=== PATIENT | female | born 1955 | race Caucasian/White ===

== ENCOUNTER 2017-07-22 08:04 | Day surgery (SDC) | payer OTHER ==
[2017-07-21 17:22] VITALS: BMI 24.5
[~2017-07-22 08:04] MED LIST: ACETAMINOPHEN 325 MG TABLET (FP) PO PRN
[2017-07-22] MEDS ORDERED: CYCLOPENTOLATE HCL 1% OPHTH SOLN 2 ML BOTTLE ONE (08:19)
[2017-07-22] MEDS ORDERED: FLURBIPROFEN 0.03% OPHTH SOLN 2.5 ML BOTTLE ONE (08:19)
[2017-07-22] MEDS ORDERED: TROPICAMIDE 1% OPHTH SOLN 15 ML BOTTLE ONE (08:19)
[2017-07-22] MEDS ORDERED: PHENYLEPHRINE 2.5% OPHTH SOLN 15 ML BOTTLE ONE (08:19)
[2017-07-22] MEDS ORDERED: CIPROFLOXACIN 0.3% EYE DROPS 5 ML BOTTLE ONE (08:19)
[2017-07-22] MEDS: PHENYLEPHRINE 2.5% OPHTH SOLN 15 ML BOTTLE OP SCH ×3 (08:25→08:35)
[2017-07-22] MEDS: CYCLOPENTOLATE HCL 1% OPHTH SOLN 2 ML BOTTLE OP SCH ×3 (08:25→08:35)
[2017-07-22] MEDS: CIPROFLOXACIN HCL 0.3% OPHTH 2.5ML BOTTLE OP SCH ×3 (08:25→08:35)
[2017-07-22] MEDS: FLURBIPROFEN 0.03% OPHTH SOLN 2.5 ML BOTTLE OP SCH ×3 (08:25→08:35)
[2017-07-22] MEDS: TROPICAMIDE 1% OPHTH SOLN 15 ML BOTTLE OP SCH ×3 (08:25→08:35)
[2017-07-22 08:44] VITALS: TEMP 98.6
[2017-07-22] MEDS ORDERED: LIDOCAINE HCL/PF 2% SDV 5ML VIAL ONE (09:24)
[2017-07-22] MEDS ORDERED: PROPOFOL 20 ML ONE (09:24)
[2017-07-22] MEDS ORDERED: MIDAZOLAM HCL 2 MG/2 ML SINGLE DOSE VIAL ONE (09:24)
[2017-07-22] MEDS ORDERED: TETRACAINE 0.5% OPHTH SOLN 2 ML BOTTLE OD ONE (09:25)
[2017-07-22] MEDS ORDERED: BUPIVACAINE HCL/PF 0.75% 10 ML VIAL RB ONE (09:32)
[2017-07-22] MEDS ORDERED: LIDOCAINE HCL/PF 2% SDV 5ML VIAL INF ONE (09:32)
[2017-07-22] MEDS ORDERED: POVIDONE-IODINE 5% OPHTHALMIC PREP 30 ML SOLUTION OD ONE (09:37)
[2017-07-22] MEDS ORDERED: BSS (NA/CA/MG/K) BALANCED SALT SOLUTION OPHTH SOLN 15 ML BOTTLE OD ONE (09:45)
[2017-07-22] MEDS ORDERED: LIDOCAINE HCL 1% PRESERVATIVE FREE - 30ML VIAL IO ONE (09:45)
[2017-07-22] MEDS ORDERED: TRYPAN BLUE 0.5 ML DISP.SYRIN IO ONE (09:45)
[2017-07-22] MEDS ORDERED: CHONDROITIN SU A/HYALUR SOD 1 KIT IO ONE (09:45)
[2017-07-22] MEDS ORDERED: EPINEPHrine/PF 1 MG/1 ML (1:1,000) AMPULE IO ONE (09:47)
[2017-07-22] MEDS ORDERED: TRYPAN BLUE 0.5 ML DISP.SYRIN ONE (10:42)
[2017-07-22 12:46] VITALS: BP 119/73; PULSE 56
--- NOTE | 2017-07-23 07:31 | OP ---
DATE OF OPERATION: 07/22/2017 PREOPERATIVE DIAGNOSIS: Cataract, right eye. POSTOPERATIVE DIAGNOSIS: Mature cataract, right eye. PROCEDURE: Phacoemulsification of right cataract with posterior chamber intraocular lens implantation and capsule staining with trypan blue. The lens used [id number], 23.5 diopter power, serial number [id number]. ANESTHESIA: Peribulbar/modified van Lint/MAC. COMPLICATIONS: None. DESCRIPTION OF PROCEDURE: The patient was brought to the operating room and correctly identified along with the operative site As well as correct intraocular lens lundy. She was then given a peribulbar block under sedation with 5 mL of a 1:1 mixture of 2% lidocaine and 0.75% bupivacaine. Then, 2 mL of the same mixture was given as a modified van Lint. An eyelid speculum was then placed into the right eye. A poor red reflex was noted immediately. A paracentesis port was created and intracameral lidocaine given, and then, beneath an air bubble, the capsule was stained with trypan blue. Viscoelastic was then injected to inflate the anterior chamber, and a temporal clear corneal wound was created. A continuous circular capsulorrhexis was performed. The nucleus was then hydrodissected and hydrodelineated with BSS and removed with phacoemulsification. The remaining cortical material was irrigated and aspirated from the eye. Viscoelastic was injected to inflate the anterior chamber, and the lens was injected into the capsular bag. Viscoelastic was irrigated and aspirated from the eye. At the end of the procedure, the eye well was noted to be well centered, covered by the anterior capsular border. All wounds were tested and found to be watertight. No suture was placed. Topical vancomycin placed, the eye patched and shielded, and the patient discharged from the operating room in a stable condition. GRACE TREVIZO M.D. [id number]
== END 2017-07-22 11:20 | disposition home or self-care (01) ==
LOC: JASU-SURG 08:04
PROVIDERS: ATTEND Ophthalmology
PROC: 08RJ3JZ Replacement of Right Lens with Synthetic Substitute, Percutaneous Approach (ICD-10-PCS; principal; 2017-07-22 09:00)
DX: H25.091 Other age-related incipient cataract, right eye (principal); H57.8 Other specified disorders of eye and adnexa

== ENCOUNTER 2019-03-30 12:18 | Emergency (ER) | payer OTHER ==
[2019-03-30] MEDS ORDERED: SODIUM CHLORIDE 1,000 ML IV STA (12:39)
[2019-03-30 12:49] VITALS: PULSE 76; BMI 21.7
[2019-03-30 13:28] LABS: BASO % 0.5 % (0-2.0); EOS % 0.6 % (0-4.5); HEMATOCRIT 41.5 % (32.4-45.2); HEMOGLOBIN 13.9 GM/dL (10.7-15.3); LYMPH % 28.4 % (8-40); MCH 29.5 pg (25.7-33.7); MCHC 33.5 g/dl (32.0-36.0); MEAN PLT VOLUME 9.9 fl (7.5-11.1); MONO % 9.3 % (3.8-10.2); NEUT % 61.2 % (42.8-82.8); PLATELET COUNT 208 K/MM3 (134-434); RBC 4.71 M/mm3 (3.60-5.2); RDW 12.8 % (11.6-15.6); WHITE BLOOD COUNT 5.1 K/mm3 (4.0-10.0)
[2019-03-30 13:49] LABS: ALBUMIN 3.8 g/dl (3.4-5.0); BILIRUBIN,TOTAL 0.9 mg/dL (0.2-1); BLOOD UREA NITROGEN 11.3 mg/dL (7-18); CALCIUM 9.3 mg/dL (8.5-10.1); CREATININE 0.8 mg/dL (0.55-1.3); MAGNESIUM 2.1 mg/dL (1.8-2.4); POTASSIUM 4.5 mmol/L (3.5-5.1)
[2019-03-30] MEDS ORDERED: INSULIN REGULAR HUMAN 100 UNITS/ML *VIAL IVPUSH ONE (14:04)
[2019-03-30] MEDS ORDERED: SODIUM CHLORIDE 500 ML IV STA (14:04)
[2019-03-30] MEDS ORDERED: INSULIN REGULAR HUMAN 100 UNITS/ML *VIAL ONE (14:10)
--- NOTE | 2019-03-30 14:16 | PDOC ---
Documentation entered by Jeannie Fuentes SCRIBE, acting as scribe for Usman Beck MD. Usman Beck MD: This documentation has been prepared by the Gina weir Sammi, SCRIBE, under my direction and personally reviewed by me in its entirety. I confirm that the documentation accurately reflects all work, treatment, procedures, and medical decision making performed by me. History of Present Illness - General Chief Complaint: Blood Sugar Problem Stated Complaint: HIGH BLOOD SUGAR Time Seen by Provider: 03/30/19 12:28 - History of Present Illness Initial Comments: 03/30/19 12:41 The patient is a 63 year old female, with a significant PMH of DM, who presents from PCP David (@ [address] [place] [address]) for evaluation of hyperglycemia and increased urination, most recent blood sugar in 400s (normal range low 100s). Denies fever , chills, or associated pain. Patient endorses history of unintentional weight loss of up to 30 pounds. Denies fevers/chills/night sweats/melena/bright red blood per rectum. Denies recent colonoscopy. Past History - Past Medical History Allergies/Adverse Reactions: Allergies Allergy/AdvReac Type Severity Reaction Status Date / Time No Known Allergies Allergy Verified 08/04/17 08:35 Home Medications: Ambulatory Orders Amlodipine Besylate [Norvasc -] 10 mg PO DAILY 10/06/12 metFORMIN HCL [Metformin HCl] 500 mg PO DAILY 07/21/17 Atenolol/Chlorthalidone [Tenoretic 100 Tablet] 1 each PO DAILY 07/22/17 Atorvastatin Ca [Lipitor] 20 mg PO HS 07/22/17 Anemia: No Asthma: No Cancer: No Cardiac Disorders: No CVA: No COPD: No CHF: No Dementia: No Diabetes: Yes Disorders: No HTN: Yes Hypercholesterolemia: No Liver Disease: No Seizures: No Thyroid Disease: No - Surgical History Abdominal Surgery: No Appendectomy: No Cardiac Surgery: No Cholecystectomy: No Lung Surgery: No Neurologic Surgery: No Orthopedic Surgery: No - Suicide/Smoking/Psychosocial Hx Smoking Status: No Smoking History: Never smoked Number of Cigarettes Smoked Daily: 0 Hx Alcohol Use: Yes (RARELY) Drug/Substance Use Hx: No Substance Use Type: None Review of Systems - Review of Systems Comments:: 03/30/19 12:41 CONSTITUTIONAL: (+)fatigue. (+)hyperglycemia. No fever, no chills, no fatigue EYES: No visual changes ENT: No ear pain, no sore throat CARDIOVASCULAR: No chest pain, no palpitations RESPIRATORY: No cough, no SOB GI: No abdominal pain, no nausea, no vomiting, no constipation, no diarrhea GENITOURINARY: (+)increased urination. No dysuria, no hematuria MUSKULOSKELETAL: No backpain, no joint pain, no myalgias SKIN: No rash NEURO: No headache *Physical Exam - Vital Signs Last Vital Signs Temp Pulse Resp BP Pulse Ox 97.9 F 76 18 156/77 99 03/30/19 12:20 03/30/19 12:20 03/30/19 12:20 03/30/19 12:20 03/30/19 12:20 - Physical Exam Comments: 03/30/19 13:09 CONSTITUTIONAL: Well-appearing; well-nourished; in no apparent distress HEAD: Normocephalic; atraumatic EYES: PERRL; EOM intact ENMT: External appears normal; normal oropharynx NECK: Supple; non-tender; no cervical lymphadenopathy CARD: Normal S1, S2; no murmurs, rubs, or gallops RESP: Normal chest excursion with respiration; breath sounds clear and equal bilaterally; no wheezes, rhonchi, or rales ABD: Soft, non-distended; non-tender; no palpable organomegaly, easily reducable hernia is noted EXT: Normal ROM in all four extremities; non-tender to palpation; distal pulses intact SKIN: Warm, dry, no rash NEURO: No focal neurological deficiencies. 03/30/19 16:16 Heart Score/ECG Review - ECG Impressions Comment:: 03/30/19 13:34 sinus rhythm with sinus arrhythmia with 1st degree AV block right bundle branch block abnormal ECG ED Treatment Course - LABORATORY CBC & Chemistry Diagram: 03/30/19 13:08 03/30/19 13:08 - ADDITIONAL ORDERS Additional order review: Laboratory Results 03/30/19 03/30/19 03/30/19 13:08 13:08 12:42 Sodium 135 L Potassium 4.5 Chloride 98 Carbon Dioxide 21 Anion Gap 16 BUN 11.3 Creatinine 0.8 Est GFR (CKD-EPI)AfAm 92.22 Est GFR (CKD-EPI)NonAf 79.57 POC Glucometer 413 Random Glucose 454 H* Calcium 9.3 Magnesium 2.1 Total Bilirubin 0.9 AST 12 L ALT 14 Alkaline Phosphatase 100 Creatine Kinase 79 Troponin I < 0.02 Total Protein 7.0 Albumin 3.8 03/30/19 03/30/19 13:08 12:42 RBC 4.71 MCV 88.0 MCHC 33.5 RDW 12.8 MPV 9.9 D Neutrophils % 61.2 D Lymphocytes % 28.4 D Monocytes % 9.3 D Eosinophils % 0.6 D Basophils % 0.5 POC Glucometer 413 - RADIOLOGY Radiology Studies Ordered: Category Date Time Status CHEST PA & LAT [RAD] Stat Radiology 03/30/19 12:37 Ordered - Medications Given in the ED: ED Medications Discontinued Medications Generic Name Dose Route Start Last Admin Trade Name Freq PRN Reason Stop Dose Admin Sodium Chloride 1,000 mls @ 1,000 mls/hr 03/30/19 12:39 03/30/19 13:12 Normal Saline - IV 03/30/19 13:38 1,000 mls/hr ASDIR STA Administration Medical Decision Making - Medical Decision Making 03/30/19 14:15 Patient is a 63-year-old female with history of hypertension, diabetes presents to the ER with elevated blood sugar and unintentional weight loss of up to 30 pounds over. Of one month. Patient was transferred from the primary care clinic for evaluation of hyperglycemia. In the ER, patient is awake and alert, symptom- free. Patient is afebrile and nontoxic appearing. We'll obtain CBC/CMP/UA. DKA is highly unlikely. Will hydrate and we'll administer insulin. Will reassess, likely discharge 03/30/19 16:15 Patient reassessed. Patient is resting comfortably, symptom-free. Repeat blood glucose is noted to be 300. Will administer additional insolence subcutaneous. Advised patient to comply with them diabetic diet and follow up with medicine clinic for evaluation of significant weight loss. Patient expressed understanding. Will discharge *DC/Admit/Observation/Transfer Diagnosis at time of Disposition: Hyperglycemia - Discharge Dispostion Disposition: HOME Condition at time of disposition: Stable - Referrals Referrals: Julissa Hernandez MD [Primary Care Provider] - - Patient Instructions Printed Discharge Instructions: DI for Hyperglycemia -- Adult Print Language: BULGARIAN - Post Discharge Activity
[2019-03-30] MEDS ORDERED: INSULIN REGULAR HUMAN 100 UNITS/ML *VIAL SQ ONE (15:58)
[2019-03-30 16:11] LABS: URINE APPEARANCE CLEAR; URINE BILIRUBIN NEGATIVE (NEGATIVE); URINE COLOR YELLOW; URINE GLUCOSE (UA) 3+ (NEGATIVE); URINE KETONE 3+ (NEGATIVE); URINE LEUK ESTERASE NEGATIVE (NEGATIVE); URINE NITRITE NEGATIVE (NEGATIVE); URINE PROTEIN NEGATIVE (NEGATIVE); URINE UROBILINOGEN 0.2 mg/dL (0.2-1.0)
[2019-03-30 16:17] VITALS: BP 126/75; TEMP 98.1
--- NOTE | 2019-03-31 11:12 | EKG ---
Test Reason : Blood Pressure : / mmHG Vent. Rate : 077 BPM Atrial Rate : 077 BPM P-R Int : 210 ms QRS Dur : 146 ms QT Int : 432 ms P-R-T Axes : 050 -05 027 degrees QTc Int : 488 ms SINUS RHYTHM WITH SINUS ARRHYTHMIA WITH 1ST DEGREE A-V BLOCK RIGHT BUNDLE BRANCH BLOCK ABNORMAL ECG WHEN COMPARED WITH ECG OF 30-APR-2013 01:59, RIGHT BUNDLE BRANCH BLOCK IS NOW PRESENT Confirmed by CAMILLE PEDRAZA, JOSE DAVID ([id number]) on 03/31/2019 11:12:10 AM Referred By: Confirmed By:JOSE DAVID OBRIEN MD
== END 2019-03-30 16:30 | disposition home or self-care (01) ==
LOC: JER 12:18
PROC: 3E033VG Introduction of Insulin into Peripheral Vein, Percutaneous Approach (ICD-10-PCS; principal; 2019-03-30)
PROC: 3E013VG Introduction of Insulin into Subcutaneous Tissue, Percutaneous Approach (ICD-10-PCS; 2019-03-30)
PROC: 3E0337Z Introduction of Electrolytic and Water Balance Substance into Peripheral Vein, Percutaneous Approach (ICD-10-PCS; 2019-03-30)
DX: E11.65 Type 2 diabetes mellitus with hyperglycemia (principal); I10 Essential (primary) hypertension; R63.4 Abnormal weight loss
CPT/HCPCS: 36415; 71045-TC-FY; 80053; 81003; 82550; 82962; 83735; 84484; 85025; 93005; 93010; 99283-25; J7030

== ENCOUNTER 2019-05-02 01:21 | Emergency (ER) | payer OTHER | END 2019-05-02 03:50 | disposition home or self-care (01) | LOC: JER 01:21 ==

== ENCOUNTER 2019-10-05 20:28 | Emergency (ER) | payer OTHER ==
[2019-10-05 20:38] VITALS: TEMP 98.3; BMI 24.7
[2019-10-05 22:25] LABS: VENOUS PC02 56.5 mmHg (38-52)
[2019-10-05 22:26] LABS: VENOUS PO2 < 49 mmHg (28-48)
[2019-10-05 22:31] LABS: BASO % 0.7 % (0-2.0); EOS % 1.5 % (0-4.5); HEMATOCRIT 39.2 % (32.4-45.2); HEMOGLOBIN 13.6 GM/dL (10.7-15.3); LYMPH % 45.6 % (8-40); MCH 29.4 pg (25.7-33.7); MCHC 34.7 g/dl (32.0-36.0); MEAN CELL VOLUME 84.6 fl (80-96); MONO % 10.1 % (3.8-10.2); NEUT % 42.1 % (42.8-82.8); PLATELET COUNT 276 K/MM3 (134-434); RBC 4.63 M/mm3 (3.60-5.2); RDW 12.7 % (11.6-15.6); WHITE BLOOD COUNT 5.5 K/mm3 (4.0-10.0)
[2019-10-05 22:40] LABS: INR 0.83 (0.83-1.09); PROTHROMBIN TIME (PATIENT) 9.8 SEC (9.7-13.0)
[2019-10-05 22:42] LABS: ACTIVATED PTT 32.7 SECONDS (25.2-36.5)
[2019-10-05 22:58] LABS: ALBUMIN 3.9 g/dl (3.4-5.0); BILIRUBIN,TOTAL 0.4 mg/dL (0.2-1); BLOOD UREA NITROGEN 25.5 mg/dL (7-18); CALCIUM 9.5 mg/dL (8.5-10.1); CREATININE 1.2 mg/dL (0.55-1.3); POTASSIUM 3.8 mmol/L (3.5-5.1); TOT PROT 7.3 g/dl (6.4-8.2)
[2019-10-05 23:27] LABS: URINE APPEARANCE CLEAR; URINE BILIRUBIN NEGATIVE (NEGATIVE); URINE COLOR YELLOW; URINE GLUCOSE (UA) 3+ (NEGATIVE); URINE KETONE NEGATIVE (NEGATIVE); URINE LEUK ESTERASE NEGATIVE (NEGATIVE); URINE NITRITE NEGATIVE (NEGATIVE); URINE PROTEIN NEGATIVE (NEGATIVE); URINE UROBILINOGEN 0.2 mg/dL (0.2-1.0)
--- NOTE | 2019-10-05 23:58 | PDOC ---
History of Present Illness - General Chief Complaint: Blood Sugar Problem Stated Complaint: HYPERTENSION Time Seen by Provider: 10/05/19 23:45 - History of Present Illness Initial Comments: 63F 10/05/19 23:58 Past History - Past Medical History Allergies/Adverse Reactions: Allergies Allergy/AdvReac Type Severity Reaction Status Date / Time No Known Allergies Allergy Verified 03/30/19 16:21 Home Medications: Ambulatory Orders Amlodipine Besylate [Norvasc -] 10 mg PO DAILY 10/06/12 metFORMIN HCL [Metformin HCl] 1,000 mg PO DAILY 07/21/17 Atenolol/Chlorthalidone [Tenoretic 100 Tablet] 1 each PO DAILY 07/22/17 Atorvastatin Ca [Lipitor] 20 mg PO HS 07/22/17 Glipizide Xl [Glucotrol Xl -] 5 mg PO DAILY 03/30/19 Sitagliptin Phosphate [Januvia] 50 mg PO DAILY 03/30/19 Anemia: No Asthma: No Cancer: No Cardiac Disorders: No CVA: No COPD: No CHF: No Dementia: No Diabetes: Yes Disorders: No HTN: Yes Hypercholesterolemia: No Liver Disease: No Seizures: No Thyroid Disease: No - Surgical History Abdominal Surgery: No Appendectomy: No Cardiac Surgery: No Cholecystectomy: No Lung Surgery: No Neurologic Surgery: No Orthopedic Surgery: No - Psycho Social/Smoking Cessation Hx Smoking Status: No Smoking History: Never smoked Number of Cigarettes Smoked Daily: 0 Hx Alcohol Use: No Drug/Substance Use Hx: No Substance Use Type: None *Physical Exam - Vital Signs Last Vital Signs Temp Pulse Resp BP Pulse Ox 98.3 F 59 L 20 164/72 100 10/05/19 20:34 10/05/19 20:34 10/05/19 20:34 10/05/19 20:34 10/05/19 20:34 ED Treatment Course - LABORATORY CBC & Chemistry Diagram: 10/05/19 22:20 10/05/19 22:20 - ADDITIONAL ORDERS Additional order review: Laboratory Results 10/05/19 10/05/19 10/05/19 23:22 22:20 22:20 PT with INR 9.80 INR 0.83 PTT (Actin FS) 32.7 VBG pH 7.40 POC VBG pCO2 56.5 H POC VBG pO2 < 49 H VBG HCO3 33.9 H VBG O2 Sat (Daily) 49.3 L VBG Base Excess 7.5 H Sodium Potassium Chloride Carbon Dioxide Anion Gap BUN Creatinine Est GFR (CKD-EPI)AfAm Est GFR (CKD-EPI)NonAf Random Glucose Calcium Total Bilirubin AST ALT Alkaline Phosphatase Total Protein Albumin Beta-Hydroxybutyrate Urine Color Yellow Urine Appearance Clear Urine pH 5.0 Ur Specific [place] 1.020 Urine Protein Negative Urine Glucose (UA) 3+ H Urine Ketones Negative Urine Blood Negative Urine Nitrite Negative Urine Bilirubin Negative Urine Urobilinogen 0.2 Ur Leukocyte Esterase Negative 10/05/19 10/05/19 22:20 22:20 PT with INR INR PTT (Actin FS) VBG pH POC VBG pCO2 POC VBG pO2 VBG HCO3 VBG O2 Sat (Daily) VBG Base Excess Sodium 135 L Potassium 3.8 Chloride 95 L Carbon Dioxide 33 H Anion Gap 7 L BUN 25.5 H Creatinine 1.2 Est GFR (CKD-EPI)AfAm 56.49 Est GFR (CKD-EPI)NonAf 48.74 Random Glucose 442 H* Calcium 9.5 Total Bilirubin 0.4 AST 12 L ALT 20 Alkaline Phosphatase 119 H Total Protein 7.3 Albumin 3.9 Beta-Hydroxybutyrate < 0.2 L Urine Color Urine Appearance Urine pH Ur Specific [place] Urine Protein Urine Glucose (UA) Urine Ketones Urine Blood Urine Nitrite Urine Bilirubin Urine Urobilinogen Ur Leukocyte Esterase 10/05/19 22:20 RBC 4.63 MCV 84.6 MCHC 34.7 RDW 12.7 MPV 9.0 Neutrophils % 42.1 L D Lymphocytes % 45.6 H D Monocytes % 10.1 Eosinophils % 1.5 D Basophils % 0.7
[2019-10-06] MEDS ORDERED: SODIUM CHLORIDE 1,000 ML IV STA
--- NOTE | 2019-10-06 00:20 | PDOC ---
Documentation entered by Shiloh Nugent SCRIBE, acting as scribe for Usman Beck MD. Usman Beck MD: This documentation has been prepared by the Raffi weir Xhesika, SCRIBE, under my direction and personally reviewed by me in its entirety. I confirm that the documentation accurately reflects all work, treatment, procedures, and medical decision making performed by me. History of Present Illness - General Chief Complaint: Blood Sugar Problem Stated Complaint: HYPERTENSION Time Seen by Provider: 10/05/19 23:45 History Source: Patient Exam Limitations: No Limitations - History of Present Illness Initial Comments: 10/06/19 00:04 The patient is a 63 year old female with a significant PMH of DM (14 units of insulin and metformin 2x a day) who presents to the emergency department for a couple days of hyperglycemia. Pt states her most recent blood sugar was 525 and her last insulin was at 2pm. Pt states her baseline blood sugar is in the 200 s. Pt reports associated nausea and mild diarrhea. Pt denies any different food intake. Pt denies any recent travel or sick contacts. The patient denies chest pain, shortness of breath, headache and dizziness. Denies fever, chills, cough, vomiting, and constipation. Denies dysuria, frequency, urgency and hematuria. Allergies: NKDA Past History - Past Medical History Allergies/Adverse Reactions: Allergies Allergy/AdvReac Type Severity Reaction Status Date / Time No Known Allergies Allergy Verified 03/30/19 16:21 Home Medications: Ambulatory Orders Amlodipine Besylate [Norvasc -] 10 mg PO DAILY 10/06/12 metFORMIN HCL [Metformin HCl] 1,000 mg PO DAILY 07/21/17 Atenolol/Chlorthalidone [Tenoretic 100 Tablet] 1 each PO DAILY 07/22/17 Atorvastatin Ca [Lipitor] 20 mg PO HS 07/22/17 Glipizide Xl [Glucotrol Xl -] 5 mg PO DAILY 03/30/19 Sitagliptin Phosphate [Januvia] 50 mg PO DAILY 03/30/19 Anemia: No Asthma: No Cancer: No Cardiac Disorders: No CVA: No COPD: No CHF: No Dementia: No Diabetes: Yes Disorders: No HTN: Yes Hypercholesterolemia: No Liver Disease: No Seizures: No Thyroid Disease: No - Surgical History Abdominal Surgery: No Appendectomy: No Cardiac Surgery: No Cholecystectomy: No Lung Surgery: No Neurologic Surgery: No Orthopedic Surgery: No - Psycho Social/Smoking Cessation Hx Smoking Status: No Smoking History: Never smoked Number of Cigarettes Smoked Daily: 0 Hx Alcohol Use: No Drug/Substance Use Hx: No Substance Use Type: None Review of Systems - Review of Systems Able to Perform ROS?: Yes Comments:: 10/06/19 00:05 CONSTITUTIONAL: No fever, no chills, no fatigue. +hyperglycemia EYES: No visual changes ENT: No ear pain, no sore throat CARDIOVASCULAR: No chest pain, no palpitations RESPIRATORY: No cough, no SOB GI: No abdominal pain, no vomiting, no constipation.+ nausea. + diarrhea GENITOURINARY: No dysuria, no frequency, no hematuria MUSKULOSKELETAL: No backpain, no joint pain, no myalgias SKIN: No rash NEURO: No headache *Physical Exam - Vital Signs Last Vital Signs Temp Pulse Resp BP Pulse Ox 98.3 F 59 L 20 164/72 100 10/05/19 20:34 10/05/19 20:34 10/05/19 20:34 10/05/19 20:34 10/05/19 20:34 - Physical Exam 10/06/19 00:05 CONSTITUTIONAL: Well-appearing; well-nourished; in no apparent distress HEAD: Normocephalic; atraumatic EYES: PERRL; EOM intact ENMT: External appears normal; normal oropharynx NECK: Supple; non-tender; no cervical lymphadenopathy CARD: Normal S1, S2; no murmurs, rubs, or gallops RESP: Normal chest excursion with respiration; breath sounds clear and equal bilaterally; no wheezes, rhonchi, or rales ABD: Soft, non-distended; non-tender; no palpable organomegaly, no palpable hernias EXT: Normal ROM in all four extremities; non-tender to palpation; distal pulses intact SKIN: Warm, dry, no rash NEURO: No focal neurological deficiencies. ED Treatment Course - LABORATORY CBC & Chemistry Diagram: 10/05/19 22:20 10/05/19 22:20 - ADDITIONAL ORDERS Additional order review: Laboratory Results 10/05/19 10/05/19 10/05/19 23:22 22:20 22:20 PT with INR 9.80 INR 0.83 PTT (Actin FS) 32.7 VBG pH 7.40 POC VBG pCO2 56.5 H POC VBG pO2 < 49 H VBG HCO3 33.9 H VBG O2 Sat (Daily) 49.3 L VBG Base Excess 7.5 H Sodium Potassium Chloride Carbon Dioxide Anion Gap BUN Creatinine Est GFR (CKD-EPI)AfAm Est GFR (CKD-EPI)NonAf Random Glucose Calcium Total Bilirubin AST ALT Alkaline Phosphatase Total Protein Albumin Beta-Hydroxybutyrate Urine Color Yellow Urine Appearance Clear Urine pH 5.0 Ur Specific [place] 1.020 Urine Protein Negative Urine Glucose (UA) 3+ H Urine Ketones Negative Urine Blood Negative Urine Nitrite Negative Urine Bilirubin Negative Urine Urobilinogen 0.2 Ur Leukocyte Esterase Negative 10/05/19 10/05/19 22:20 22:20 PT with INR INR PTT (Actin FS) VBG pH POC VBG pCO2 POC VBG pO2 VBG HCO3 VBG O2 Sat (Daily) VBG Base Excess Sodium 135 L Potassium 3.8 Chloride 95 L Carbon Dioxide 33 H Anion Gap 7 L BUN 25.5 H Creatinine 1.2 Est GFR (CKD-EPI)AfAm 56.49 Est GFR (CKD-EPI)NonAf 48.74 Random Glucose 442 H* Calcium 9.5 Total Bilirubin 0.4 AST 12 L ALT 20 Alkaline Phosphatase 119 H Total Protein 7.3 Albumin 3.9 Beta-Hydroxybutyrate < 0.2 L Urine Color Urine Appearance Urine pH Ur Specific [place] Urine Protein Urine Glucose (UA) Urine Ketones Urine Blood Urine Nitrite Urine Bilirubin Urine Urobilinogen Ur Leukocyte Esterase 10/05/19 22:20 RBC 4.63 MCV 84.6 MCHC 34.7 RDW 12.7 MPV 9.0 Neutrophils % 42.1 L D Lymphocytes % 45.6 H D Monocytes % 10.1 Eosinophils % 1.5 D Basophils % 0.7 Medical Decision Making - Medical Decision Making 10/06/19 00:19 Patient 63-year-old female with history of hypertension diabetes who presents with hyperglycemia without evidence of increased anion gap, acidosis or electrolyte abnormalities. Patient is asymptomatic and well-appearing in the ED with vital signs which are noted. Patient is afebrile. Will aggressively hydrate, will administer subcutaneous insulin as per sliding scale and likely discharge patient with outpatient follow-up. 10/06/19 01:53 Patient reassessed. Patient resting comfortably. Will administer subq insulin- 6 units and will discharge with outpatient follow-up. Discharge - Discharge Information Problems reviewed: Yes Clinical Impression/Diagnosis: Hyperglycemia Condition: Stable Disposition: HOME - Follow up/Referral Referrals: Demarcus Mccurdy MD [Staff Physician] - - Patient Discharge Instructions Patient Printed Discharge Instructions: DI for Hyperglycemia -- Adult Print Language: [id number] - Post Discharge Activity
[2019-10-06] MEDS ORDERED: INSULIN REGULAR HUMAN 100 UNITS/ML *VIAL SQ ONE (01:51)
[2019-10-06 02:16] VITALS: BP 125/65; PULSE 60
== END 2019-10-06 02:17 | disposition home or self-care (01) ==
LOC: JER 20:28
PROC: 3E0337Z Introduction of Electrolytic and Water Balance Substance into Peripheral Vein, Percutaneous Approach (ICD-10-PCS; principal; 2019-10-05)
PROC: 3E013VG Introduction of Insulin into Subcutaneous Tissue, Percutaneous Approach (ICD-10-PCS; 2019-10-05)
DX: E11.65 Type 2 diabetes mellitus with hyperglycemia (principal); Z79.4 Long term (current) use of insulin
CPT/HCPCS: 36415; 80053; 81003; 82010; 82803; 82962; 85025; 85610; 85730; 99283-25; J7030

== ENCOUNTER 2019-10-28 20:30 | Emergency (ER) | payer OTHER ==
[2019-10-28 20:40] VITALS: TEMP 98.1; BMI 22.6
--- NOTE | 2019-10-28 22:06 | PDOC ---
History of Present Illness - General Chief Complaint: Chest Pain Stated Complaint: CHEST PAIN Time Seen by Provider: 10/28/19 21:18 History Source: Patient, Spouse ( present at bedside.), Pt declined Air Brake Rigger (Declined telephone gate operator. Requested translate.) Exam Limitations: Language Barrier (Maori speaking only.) - History of Present Illness Initial Comments: HPI: 63 y/o female presenting to [facility] ER complaining of approx. 5 seconds of substernal chest pain with associated shortness of breath. Occurred at approx. 20:00 this evening. Pain was non-radiating and non-reproducible. Episode occured while she was cleaning in her house. Both symptoms started and stopped at the same time. At time of interview, the pt denies any complaints. Denies h/o similar. Denies recent illness, including fevers, chills, coughing, sneezing, vomiting, or abd pain. Sick Contacts: No Recent Travel: No Family Hx: - Denies h/o CT < age 65 in first degree relative Medical Hx: - HTN - Insulin dependent diabetes Review of Systems: In addition to that documented in the HPI above, the additional ROS was obtained: Constitutional- Denies fevers or chills Head- Denies vision changes ENMT- Denies sore throat CV- Per HPI Resp- Per HPI GI- Denies abd pain, vomiting or diarrhea - Denies painful urination MSK- Denies recent trauma Skin- Denies new rashes Neuro- Denies new numbness or tingling or weakness Endocrine- Denies polyuria Heme- Denies bleeding or bruising Physical Examination: Vital signs and nursing notes reviewed. Constitutional- Well-developed, well-nourished adult female in no acute distress or obvious discomfort. Found semi-fowlers on hospital bed. Head- Normocephalic. No obvious external signs of trauma. Neck- Supple, trachea is midline. No JVD. Cardiovascular / Chest- Regular rate and regular rhythm. No murmur, rubs, clicks, or gallops. Peripheral pulses- radial pulses full. No anterior chest wall tenderness to palpation. No pretibial edema. Respiratory- Breathing unlabored. Equal chest rise and fall. Clear to auscultation bilaterally. No stridor, no wheezing, no rhonchi. Gastrointestinal- abdomen is soft, non-tender, non-distended. Neuro- Alert and oriented x4. Moving all four extremities spontaneously. No facial asymmetry. No slurred speech. Skin- Warm, dry, and intact. Psych- Affect- appropriate. Mood- normal. Speech was non-labored, non- pressured. MDM: HEART Score for Major Cardiac Events RESULT SUMMARY: 2 points Low Score (0-3 points) Risk of MACE of 0.9-1.7%. INPUTS: History > 0 = Slightly suspicious EKG > 0 = Normal Age > 1 = 45-64 Risk factors > 1 = 1-2 risk factors Initial troponin > 0 = ?normal limit 63 y/o female presenting with approx. 5 seconds of chest burning sensation. Non- radiating and non-reproducible. Afebrile. Vitals unremarkable for hypotension or tachycardia. Physical exam as described above. Low suspicion for ACS, arrhythmia, PNA. Suspect likely brief reflux symptoms vs muscle spasm. Will obtain cardiac workup given age and comorbidities. EKG revealed sinus rhythm with 1st degree HB and bifascicular block. No ST segment elevation or depression. Unchanged when compared to 30 Mar 2019. Reviewed laboratory data. No clinically significant derangement noted. Mild hypokalemia. Ordered KDur PO. Noted hyperglycemia. Will refer pt to PCP for diabetes medication optimization. 28 Oct 2019 23:24 PM Pt reassessed. Pt found sleeping. Easily arousable to voice. Denies further episodes of chest pain. Delta troponin drawn at three hours since onset of symptoms. 29 Oct 2019 00:01 PM Pt signed out to resident Dr. Rao after she was verbally appraised of the pts HPI, current ED course, and plan of management. Will f/u pending delta troponin. Wilfred Gibbons M.D., PGY2 Emergency Medicine Resident Past History - Past Medical History Allergies/Adverse Reactions: Allergies Allergy/AdvReac Type Severity Reaction Status Date / Time No Known Allergies Allergy Verified 10/28/19 20:40 Home Medications: Ambulatory Orders Amlodipine Besylate [Norvasc -] 10 mg PO DAILY 10/06/12 metFORMIN HCL [Metformin HCl] 1,000 mg PO DAILY 07/21/17 Atenolol/Chlorthalidone [Tenoretic 100 Tablet] 1 each PO DAILY 07/22/17 Atorvastatin Ca [Lipitor] 20 mg PO HS 07/22/17 Glipizide Xl [Glucotrol Xl -] 5 mg PO DAILY 03/30/19 Sitagliptin Phosphate [Januvia] 50 mg PO DAILY 03/30/19 Anemia: No Asthma: No Cancer: No Cardiac Disorders: No CVA: No COPD: No CHF: No Dementia: No Diabetes: Yes Disorders: No HTN: Yes Hypercholesterolemia: No Liver Disease: No Seizures: No Thyroid Disease: No - Surgical History Abdominal Surgery: No Appendectomy: No Cardiac Surgery: No Cholecystectomy: No Lung Surgery: No Neurologic Surgery: No Orthopedic Surgery: No - Psycho Social/Smoking Cessation Hx Smoking Status: No Smoking History: Never smoked Number of Cigarettes Smoked Daily: 0 Information on smoking cessation initiated: No Hx Alcohol Use: No Drug/Substance Use Hx: No Substance Use Type: None *Physical Exam - Vital Signs Last Vital Signs Temp Pulse Resp BP Pulse Ox 98.1 F 67 18 142/64 96 10/28/19 20:36 10/28/19 20:36 10/28/19 20:36 10/28/19 20:36 10/28/19 20:36 ED Treatment Course - LABORATORY CBC & Chemistry Diagram: 10/28/19 21:56 10/28/19 21:56 - RADIOLOGY Radiology Studies Ordered: Category Date Time Status CHEST PA & LAT [RAD] Stat Radiology 10/28/19 21:19 Ordered Discharge - Discharge Information Problems reviewed: Yes Clinical Impression/Diagnosis: Atypical chest pain Condition: Good - Follow up/Referral Referrals: Chris Dewitt MD [Primary Care Provider] - Michael Hernandez MD [Staff Physician] - - Patient Discharge Instructions Patient Printed Discharge Instructions: DI for Atypical Chest Pain Additional Instructions: Usted fue visto hoy por dolor en el pecho que dur 5 segundos. Sarkar electrocard iograma, radiografa de trax y laboratorios fueron normales hoy. No es probable que el episodio provenga de sarkar corazn o emir pulmones. Tu potasio estaba ligeramente bajo. Tea podra ser un hallazgo normal para usted, o podra ser un efecto secundario de sarkar medicamento. Tea es algo que debe discutir con sarkar mdico de atencin primaria. Tu glucosa tambin era raz. Tea es importante. Debe hablar con sarkar mdico de atencin primaria sobre emir medicamentos para la diabetes. Puede ser hora de cambiar emir recetas. Maggie un seguimiento con sarkar mdico de atencin primaria en los prximos 3-4 landeros. Deber llamar para hacer flor cassia. El nmero est incluido en archana paquete. Se adjunta flor copia de los resultados de hoy a archana paquete. Llvelo a la cassia para que sarkar mdico pueda revisarlos. Brittani puede hacer un seguimiento con un cardilogo. He introducido flor referencia para que violeta al Dr. Hernandez. Deber llamar para hacer flor cassia. El nmero est incluido en archana paquete. Se adjunta flor copia de los resultados de hoy a archana paquete. Llvelo a la cassia para que sarkar mdico pueda revisarlos. Dirjase al departamento de emergencias ms cercano si sarkar afeccin empeora o siente que necesita flor evaluacin de emergencia adicional. Est atento al empeoramiento del dolor en el pecho que dura ms de 5 segundos, la falta de aliento persistente o las fiebres que ivy ms de 5 landeros. You were seen today for chest pain that lasted 5 seconds. Your EKG, chest xray, and labs were all normal today. The episode is not likely to be from your heart or your lungs. Your potassium was slightly low. This could be a normal finding for you, or it could be a side effect of your medication. This is something you should discuss with your primary care doctor. Your glucose was also high. This is important. You need to talk to your primary care doctor about your diabetes medication. It may be time to change your prescriptions. Follow up with your primary care doctor in the next 3-4 days. You will need to call to make an appointment. The number is included in this packet. A copy of todays results are attached to this packet. Take it to the appointment so your doctor can review them. You can also follow up with a forklift wheel loader. I have entered a referral for you to see Dr. Gitig. You will need to call to make an appointment. The number is included in this packet. A copy of todays results are attached to this packet. Take it to the appointment so your doctor can review them. Go to the nearest emergency department if your condition worsens or you feel like you need additional emergency evaluation. Watch for worsening chest pain that last longer than 5 seconds, persistent shortness of breath, or fevers lasting longer than 5 days. Print Language: GREENLANDIC - Post Discharge Activity Work/Back to School Note: Back to Work
[2019-10-28 22:09] LABS: BASO % 1.3 % (0-2.0); EOS % 1.6 % (0-4.5); HEMATOCRIT 37.7 % (32.4-45.2); HEMOGLOBIN 12.9 GM/dL (10.7-15.3); LYMPH % 49.2 % (8-40); MCH 29.5 pg (25.7-33.7); MCHC 34.1 g/dl (32.0-36.0); MEAN CELL VOLUME 86.3 fl (80-96); MEAN PLT VOLUME 8.5 fl (7.5-11.1); MONO % 6.2 % (3.8-10.2); NEUT % 41.7 % (42.8-82.8); PLATELET COUNT 234 K/MM3 (134-434); RBC 4.37 M/mm3 (3.60-5.2); RDW 12.5 % (11.6-15.6); WHITE BLOOD COUNT 6.1 K/mm3 (4.0-10.0)
[2019-10-28 22:37] LABS: ALBUMIN 3.6 g/dl (3.4-5.0); ALK PHOS 82 U/L (45-117); ANION GAP 13 MMOL/L (8-16); BILIRUBIN,TOTAL 0.2 mg/dL (0.2-1); BLOOD UREA NITROGEN 17.8 mg/dL (7-18); CHLORIDE 101 mmol/L (98-107); CO2 25 mmol/L (21-32); CREATININE 0.9 mg/dL (0.55-1.3); GLUCOSE,RANDOM 264 mg/dL (74-106); MAGNESIUM 1.4 mg/dL (1.8-2.4); POTASSIUM 3.2 mmol/L (3.5-5.1); SGOT/AST 11 U/L (15-37); SGPT/ALT 23 U/L (13-61); SODIUM 139 mmol/L (136-145); TOT PROT 6.5 g/dl (6.4-8.2)
[2019-10-28] MEDS ORDERED: POTASSIUM CHLORIDE TABS 20 MEQ TABLET.ER (FP) PO ONE (23:37)
--- NOTE | 2019-10-28 23:43 | PDOC ---
Documentation entered by Chris Fitzpatrick SCRIBE, acting as scribe for Sharon Rao MD. Sharon Rao MD: This documentation has been prepared by the avaeAmari Daniel, SCRIBE, under my direction and personally reviewed by me in its entirety. I confirm that the documentation accurately reflects all work, treatment, procedures, and medical decision making performed by me. Attending Attestation - Resident Resident Name: Wilfred Gibbons - ED Attending Attestation I have performed the following: I have examined & evaluated the patient, The case was reviewed & discussed with the resident, I agree w/resident's findings & plan, Exceptions are as noted - HPI HPI: 10/28/19 22:07 The patient is a 63 year old female with a past medical history of HTN and insulin dependent diabetes here today for evaluation of a substernal burning sensation. The patient reports that she had a 5 second episode of a substernal burning sensation with shortness of breath. She states that this episode resolved spontaneously and it has not occurred again. She denies any previous episodes. Patient denies headache, lightheadedness. Denies fever, chills. Denies nausea, vomiting, diarrhea, abdominal pain. Allergies: NKA PCP: Chris Dewitt - Physicial Exam PE: GENERAL: Awake, alert, and fully oriented, in no acute distress HEAD: No signs of trauma EYES: PERRLA, EOMI, sclera anicteric, conjunctiva clear ENT: Auricles normal inspection, hearing grossly normal, nares patent, oropharynx clear without exudates. Moist mucosa NECK: Normal ROM, supple, no lymphadenopathy, JVD, or masses LUNGS: Breath sounds equal, clear to auscultation bilaterally. No wheezes, and no crackles HEART: Regular rate and rhythm, normal S1 and S2, no murmurs, rubs or gallops ABDOMEN: Soft, nontender, normoactive bowel sounds. No guarding, no rebound. No masses EXTREMITIES: Normal range of motion, no edema. No clubbing or cyanosis. No cords, erythema, or tenderness NEUROLOGICAL: Cranial nerves II through XII grossly intact. Normal speech, normal gait. Motor and sensation intact SKIN: Warm, dry, normal turgor, no rashes or lesions noted. - Medical Decision Making Pt states she had an episode of cp and SOB earlier tonight, called 911 when it happened. She states that by the time EMS came to her house, she felt better, episode was very brief, and no return of symptoms since that time. She states she did not want to be transported to the hospital, as she did not want to get sick, however, EMS encouraged her to seek evaluation due to cp. Initial EKG shows bifascicular block, unchanged from prior. CP is very atypical. Will obtain 3 hour troponin. If neg, will DC home. 10/29/19 00:24 Rpt trop negative. Will DC home. Discharge - Discharge Information Problems reviewed: Yes Clinical Impression/Diagnosis: Atypical chest pain Condition: Stable Disposition: HOME - Admission No - Follow up/Referral Referrals: Michael Hernandez MD [Staff Physician] - Chris Dewitt MD [Primary Care Provider] - - Patient Discharge Instructions Patient Printed Discharge Instructions: DI for Atypical Chest Pain Additional Instructions: Usted fue visto hoy por dolor en el pecho que dur 5 segundos. Sarkar electrocardiograma, radiografa de trax y laboratorios fueron normales hoy. No es probable que el episodio provenga de sarkar corazn o emir pulmones. Tu potasio estaba ligeramente bajo. Nixa podra ser un hallazgo normal para usted, o podra ser un efecto secundario de sarkar medicamento. Nixa es algo que debe discutir con sarkar mdico de atencin primaria. Tu glucosa tambin era raz. Nixa es importante. Debe hablar con sarkar mdico de atencin primaria sobre emir medicamentos para la diabetes. Puede ser hora de cambiar emir recetas. Maggie un seguimiento con sarkar mdico de atencin primaria en los prximos 3-4 landeros. Deber llamar para hacer flor cassia. El nmero est incluido en archana paquete. Se adjunta flor copia de los resultados de hoy a archana paquete. Llvelo a la cassia para que sarkar mdico pueda revisarlos. Brittani puede hacer un seguimiento con un cardilogo. He introducido flor referencia para que violeta al Dr. Hernandez. Deber llamar para hacer flor cassia. El nmero est incluido en archana paquete. Se adjunta flor copia de los resultados de hoy a archana paquete. Llvelo a la cassia para que sarkar mdico pueda revisarlos. Dirjase al departamento de emergencias ms cercano si sarkar afeccin empeora o siente que necesita flor evaluacin de emergencia adicional. Est atento al empeoramiento del dolor en el pecho que dura ms de 5 segundos, la falta de aliento persistente o las fiebres que viy ms de 5 landeros. You were seen today for chest pain that lasted 5 seconds. Your EKG, chest xray, and labs were all normal today. The episode is not likely to be from your heart or your lungs. Your potassium was slightly low. This could be a normal finding for you, or it could be a side effect of your medication. This is something you should discuss with your primary care doctor. Your glucose was also high. This is important. You need to talk to your primary care doctor about your diabetes medication. It may be time to change your prescriptions. Follow up with your primary care doctor in the next 3-4 days. You will need to call to make an appointment. The number is included in this packet. A copy of todays results are attached to this packet. Take it to the appointment so your doctor can review them. You can also follow up with a podiatrist. I have entered a referral for you to see Dr. Hernandez. You will need to call to make an appointment. The number is included in this packet. A copy of todays results are attached to this packet. Take it to the appointment so your doctor can review them. Go to the nearest emergency department if your condition worsens or you feel like you need additional emergency evaluation. Watch for worsening chest pain that last longer than 5 seconds, persistent shortness of breath, or fevers lasting longer than 5 days. Print Language: RUSSIAN - Post Discharge Activity Work/Back to School Note: Back to Work
[2019-10-29 01:11] VITALS: BP 134/75; PULSE 65
--- NOTE | 2019-10-29 11:26 | EKG ---
Test Reason : Blood Pressure : / mmHG Vent. Rate : 063 BPM Atrial Rate : 063 BPM P-R Int : 256 ms QRS Dur : 172 ms QT Int : 470 ms P-R-T Axes : 049 -45 022 degrees QTc Int : 480 ms SINUS RHYTHM WITH 1ST DEGREE A-V BLOCK RIGHT BUNDLE BRANCH BLOCK LEFT ANTERIOR FASCICULAR BLOCK BIFASCICULAR BLOCK ABNORMAL ECG WHEN COMPARED WITH ECG OF 30-MAR-2019 13:17, LEFT ANTERIOR FASCICULAR BLOCK IS NOW PRESENT NONSPECIFIC T WAVE ABNORMALITY NOW EVIDENT IN ANTEROLATERAL LEADS Confirmed by MD Kim Daniel ([id number]) on 10/29/2019 11:26:00 AM Referred By: Confirmed By:Chris Kim MD
== END 2019-10-29 01:10 | disposition home or self-care (01) ==
LOC: JER 20:30
DX: R07.89 Other chest pain (principal); I10 Essential (primary) hypertension; E11.9 Type 2 diabetes mellitus without complications; Z79.4 Long term (current) use of insulin
CPT/HCPCS: 36415; 71046-TC-FY; 80053; 82550; 83735; 84484; 85025; 93005; 93010; 99285-25